=== PATIENT | female | born 1945 | race Caucasian/White ===

== ENCOUNTER 2024-06-21 09:32 | Emergency (ER) | payer MEDICARE, OTHER, SELFPAY ==
[2024-06-21 09:36] VITALS: BP 109/80
[2024-06-21 10:06] LABS: % Basophils 0.3 % (0-2); % Eosinophils 0.4 % (0-6); % Immature Granulocytes 0.5 % (0-0.5); % Monocytes 4.9 % (1.7-9.3); % Neutrophils 76.9 % (42.2-75.2); Absolute Immature Granulocytes 0.1 10^3/uL (0-0.05); Absolute Lymphocytes 1.8 10^3/uL (1.2-3.4); Absolute Monocytes 0.5 10^3/uL (0.1-0.6); Absolute Neutrophils 8.2 10^3/uL (1.4-6.5); Hematocrit 44.8 % (37.0-47.0); Mean Corp Hgb Conc. 33.5 g/dL (33.0-37.0); Mean Corpuscular Volume 86.7 fL (81.0-99.0); Mean Platelet Volume 10.4 fL (7.4-10.4); Nucleated Red Blood Cells % 0 %; Platelet Count 289 10^3/uL (130-400); Red Blood Cell Count 5.17 10^6/uL (4.20-5.40); White Blood Cell Count 10.7 10^3/uL (4.8-10.8)
[2024-06-21 10:26] LABS: ALT (SGPT) 26 U/L (0-35); AST (SGOT) 33 U/L (14-36); Albumin 4.4 g/dl (3.5-5.0); Alkaline Phosphatase 111 U/L (38-126); Blood Urea Nitrogen 11 mg/dl (7-17); Calcium 9.9 mg/dl (8.4-10.2); Carbon Dioxide 24 mmol/L (22-30); Chloride 104 mmol/L (98-107); Glucose 127 mg/dl (70-99); Lipase 133 U/L (23-300); Potassium 3.9 mmol/L (3.5-5.1); Sodium 139 mmol/L (135-145); Total Protein 8.2 g/dl (6.3-8.2); eGFR > 60.00
[2024-06-21 10:32] LABS: Troponin I < 0.012 ng/ml
[2024-06-21 12:00] VITALS: BP 176/62
[2024-06-21] MEDS: ATIVAN 0.5 MG PO (12:40)
[2024-06-21 13:00] VITALS: BP 118/84
--- NOTE | 2024-06-21 13:15 | ED.GENMED ---
History of Present Illness
General
Chief Complaint: Blood Pressure Problem
Source: patient
Exam Limitations: none
Time Seen by Provider: 06/21/24 11:43
Nursing documentation reviewed up to this point in time: agreed with
History of Present Illness
History of Present Illness:
79 Y/O F with h/o htn
on atenolol, diovan, and lasix
here with elevated BP yesterday
she says she felt 'rushed up' like she is anxious about something
she felt that way yusuf soni then checked her BP and it was 170/60 which is high for her
it ended up getting higher 180/80 and she was really nervous
took an extra atenolol last night (she used to be on 50 mg bid but now just usually takes it during the day)
and woke up this morning and still had elevated readings and 'feeling rushed up' and wanted to be checked out
she doesn't feel painful breathing but she feels anxious
no fever/chills, cough, leg swelling
pt takes lasix for edema, not CHF
she has no headache, blurry vision
but she does have a lot of stress
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
and so she is realyl worried
pt became tearful when tlakign about this
Review of Systems
Review of Systems
Allergies reviewed?: Yes
All Other Systems: Not applicable
Phy Exam
Physical Exam
Physical Exam:
GENERAL: Alert , in no apparent distress, anxious
EYE: pupils equal and reactive
NECK: Supple
ENT: o/p clr, mmm.
CARDIAC: Regular rate and rhythm . No edema
LUNGS: Clear breath sounds bilaterally, no acute respiratory distress, no wheezes/rales/rhonchi
ABDOMEN: Soft, without focal tenderness, no r/g, no cvat, normal bowel sounds
NEUROLOGICAL: Alert and oriented, no focal neuro deficits
SKIN: Warm and dry, skin intact.
MUSCULOSKELETAL: No edema, well perfused. neg mckenzie's sign
PSYCH: Mildly anxious
Course
Orders/Labs/Results
Orders:
Orders
06/21/24 09:39
Electrocardiogram (*1) Urgent
Reason for Study: Chest Pain
EKG- Treatment ONCE
06/21/24 09:59
Complete Blood Count/With Diff Urgent
Comprehensive Metabolic Panel Urgent
Lipase Urgent
Troponin I Urgent
06/21/24 12:13
CR Chest - 2 Views Urgent
Comment:
Reason For Exam: chest tightness
06/21/24 12:33
Lorazepam [Ativan] 0.5 mg PO NOW STA
Abnormal Lab Results
06/21/24
09:59
Abs Immat Gran (auto) 0.1 H 10^3/uL
(0-0.05)
Absolute Neuts (auto) 8.2 H 10^3/uL
(1.4-6.5)
Neutrophils % 76.9 H %
(42.2-75.2)
Lymphocytes % 17.0 L %
(20.5-51.1)
Glucose 127 H mg/dl
(70-99)
06/21/24 09:59
06/21/24 09:59
Vital Signs
Initial and Last Documented VS:
Initial Vital Signs
Temp Pulse Resp BP Pulse Ox
36.5 C 58 18 109/80 98
06/21/24 09:36 06/21/24 09:36 06/21/24 09:36 06/21/24 09:36 06/21/24 09:36
Last Documented Vital Signs
Temp Pulse Resp BP Pulse Ox
36.5 C 57 18 176/62 97
06/21/24 09:36 06/21/24 12:00 06/21/24 12:00 06/21/24 12:00 06/21/24 12:00
MDM/Problems Addressed
Differential Diagnosis Includes:
Anxiety, stress, hypertension
MDM/Problems Addressed:
79-year-old female with a history of hypertension presents for feeling 'flushed' which really is describing as feeling anxious and jittery since yesterday afternoon. She has had a lot of stress in the recent sick granddaughter whom she is very
involved in taking care of and patient became very tearful in talking about this. After feeling this way she checked her blood pressure which was elevated more than usual. She normally runs 130/70
took extra dose of atenolol and was able to sleep some, not great and this mornign feels the same way
she has not ever had anxiety attack before
no real chest pain, sob, ysncope, vomiting, leg swellign
she has no ehadache, vision changes, weakness
on exam pt has normal bp in traige
repeated in ED treatment room and it was 170/70 which was similar to home cuff
her exam other than being anxious is unremarkable
after i reassured her about her labs, ekg
pt felt much better and bp 118/82
i still did offer her a dose of ativan orally to helpw ith anxiety
recommend close outpatient f/u
unlikely ACS given no exertional cp and trop neg and ekg normal
*Critical Care Note
Total Time (30-74mins, 75-104mins- exclusive of procedures): Not Applicable
ED Attending Note
-
Portions of this chart may have been created with voice recognition software.� Occasional wrong word or��sound alike� substitutions may have occurred due to the inherent limitations of voice recognition software.
Discharge Plan
Departure
Patient Disposition: Home (Routine Discharge)
Date of Disposition: 06/21/24
Time of Disposition: 13:35
Patient with high blood pressure during this ER visit?: No
Condition: Fair
Covid-19: Not Applicable
Discharge Problem:
Elevated blood pressure reading, Stress
Instructions: High Blood Pressure (DC), Anxiety in adults - ED discharge instructions
Referrals:
Alannah Boateng CRNP [Family Provider] - Follow up in 2-3 days
Activity Restrictions/Additional Instructions:
your blood pressure came down nicely without any treatment. Your blood work was reassuring, EKG was normal and your chest x-ray was clear. This could be situational due to stress. We did give you a small dose of Ativan orally to help with the
stress. But it is important that you follow-up with your family doctor this week. You can take your blood pressure twice a day and just henrik it down and give them a log of your readings. If you feel significantly worse you may return as needed.
Otherwise see your doctor this week
Interventions
Interventions:
*Risk Screen - Suicide Last Done: 06/21/24 09:36
*General Assessment Last Done: 06/21/24 09:36
*ED COVID-19 Vaccine History Last Done: 06/21/24 09:36
Discharge Date and Time
Print Language: IRANIAN
[2024-06-21 15:26] LABS: TSH Reflex To Free T4 1.68 uIU/ml (0.47-4.68)
== END 2024-06-21 14:18 | disposition home or self-care (01) ==
LOC: EMR 09:32
PROVIDERS: EMERGENCY PHYSICIAN Emergency Medicine; FAMILY PHYSICIAN Nurse Practitioner
DX: I10 Essential (primary) hypertension (principal); F43.9 Reaction to severe stress, unspecified; F41.9 Anxiety disorder, unspecified; Z79.899 Other long term (current) drug therapy
CPT/HCPCS: 99285; 71046; 80053; 83690; 84443; 84484; 85025; 93005

== ENCOUNTER 2024-06-23 20:26 | Emergency (ER) | payer MEDICARE, OTHER, SELFPAY ==
[2024-06-23 20:29] VITALS: BP 204/86
[2024-06-23 21:15] LABS: % Basophils 0.4 % (0-2); % Eosinophils 1.3 % (0-6); % Immature Granulocytes 0.4 % (0-0.5); % Lymphocytes 23.5 % (20.5-51.1); % Monocytes 7.9 % (1.7-9.3); % Neutrophils 66.5 % (42.2-75.2); Absolute Basophils 0.1 10^3/uL (0-0.2); Absolute Eosinophils 0.2 10^3/uL (0-0.7); Absolute Immature Granulocytes 0.1 10^3/uL (0-0.05); Absolute Lymphocytes 2.7 10^3/uL (1.2-3.4); Absolute Monocytes 0.9 10^3/uL (0.1-0.6); Absolute Neutrophils 7.7 10^3/uL (1.4-6.5); Hematocrit 42.5 % (37.0-47.0); Hemoglobin 14.4 g/dL (12.0-16.0); Mean Corp Hgb Conc. 33.9 g/dL (33.0-37.0); Mean Corpuscular Hgb 29.6 pg (27.0-31.0); Mean Corpuscular Volume 87.4 fL (81.0-99.0); Mean Platelet Volume 10.5 fL (7.4-10.4); Nucleated Red Blood Cells % 0 %; Platelet Count 299 10^3/uL (130-400); Red Blood Cell Count 4.86 10^6/uL (4.20-5.40); Red Cell Dist. Width 14.3 % (11.5-14.5); White Blood Cell Count 11.6 10^3/uL (4.8-10.8)
[2024-06-23 21:23] VITALS: BMI 31.9
[2024-06-23 21:24] VITALS: BP 156/74
[2024-06-23 21:29] LABS: ALT (SGPT) 24 U/L (0-35); AST (SGOT) 32 U/L (14-36); Albumin 4.7 g/dl (3.5-5.0); Alkaline Phosphatase 97 U/L (38-126); Blood Urea Nitrogen 17 mg/dl (7-17); Calcium 10.3 mg/dl (8.4-10.2); Carbon Dioxide 23 mmol/L (22-30); Chloride 103 mmol/L (98-107); Estimated Creatinine Clearance 64 ml/min; Glucose 114 mg/dl (70-99); Potassium 4.2 mmol/L (3.5-5.1); Sodium 138 mmol/L (135-145); Total Bilirubin 0.9 mg/dl (0.2-1.3); eGFR > 60.00
[2024-06-23 21:40] LABS: Troponin I < 0.012 ng/ml
[2024-06-23 21:59] LABS: TSH Reflex To Free T4 2.72 uIU/ml (0.47-4.68)
--- NOTE | 2024-06-23 22:18 | ED.GENMED ---
History of Present Illness
General
Chief Complaint: Blood Pressure Problem
Source: patient
Exam Limitations: none
Time Seen by Provider: 06/23/24 21:47
Nursing documentation reviewed up to this point in time: agreed with
History of Present Illness
History of Present Illness:
Patient is a 79-year-old female with history hypertension presenting to the emergency department due to high blood pressure readings at home. Tonight�patient states she started to feel a flushing sensation and mildly anxious. She then took her
blood pressure which was found to be in the 170s/80s. Patient states that she contacted her PCP after blood pressure did not resolve on its own and was recommended to come to the emergency department.
Patient denied any associated chest pain, shortness of breath, back pain, headache, visual changes, numbness/tingling or weakness in extremities. Patient denies any fever, chills, cough, urinary complaints, or abdominal pain.
Patient seen in emergency department 2 days ago for similar complaint and follow-up with primary care yesterday. She was started on propranolol as needed for anxiety as they think this may be playing a role in her hypertension.
Review of Systems
Review of Systems
Allergies reviewed?: Yes
All Other Systems: ROS reviewed and negative except as documented in HPI and ROS
Phy Exam
Physical Exam
Physical Exam:
Vitals: Hypertensive, otherwise vital signs stable. Afebrile
General: Patient is well appearing, no acute distress. Nontoxic appearing
Skin: Warm and dry, no rashes or lesions
Head: Normocephalic, atraumatic
Eyes: Sclera nonicteric. EOMs intact. No nystagmus.
Throat: Protecting airway
Neck: Normal ROM, no cervical spine tenderness, no meningismus. No JVD
Cardiac: Regular rate and rhythm, no murmurs. 2+ radial pulse palpable bilaterally
Pulm: Normal respiratory effort, no wheezes, rales, rhonchi heard on exam.
Abdomen: No abdominal tenderness.
Extremities: No evidence of cyanosis or edema. Palpable distal pulses
Neuro: AAOx3. CN II-XII intact. No focal neurologic deficits. Normal finger-nose. Fluid speech. Steady gait
Psychiatric: Normal affect.
Course
Orders/Labs/Results
Orders:
Orders
06/23/24 20:29
EKG [Electrocardiogram (*1)] Urgent
Reason for Study: Hypertension, Benign
EKG- Treatment ONCE
06/23/24 21:04
Complete Blood Count/With Diff Urgent
Comprehensive Metabolic Panel Urgent
TSH Reflex To Free T4 Urgent
Troponin I Urgent
06/23/24 22:12
Orthostatic VS- Treatment ONCE
06/23/24 22:16
COVID-19 Antigen Urgent
Source: Nasal Swab
Influenza A+B Rapid Molecular Urgent
THOMAS Source: Nasal Swab
Specimen Description:
Abnormal Lab Results
06/23/24
21:04
WBC 11.6 H 10^3/uL
(4.8-10.8)
MPV 10.5 H fL
(7.4-10.4)
Abs Immat Gran (auto) 0.1 H 10^3/uL
(0-0.05)
Absolute Neuts (auto) 7.7 H 10^3/uL
(1.4-6.5)
Absolute Monos (auto) 0.9 H 10^3/uL
(0.1-0.6)
Glucose 114 H mg/dl
(70-99)
Calcium 10.3 H mg/dl
(8.4-10.2)
06/23/24 21:04
06/23/24 21:04
Vital Signs
Initial and Last Documented VS:
Initial Vital Signs
Temp Pulse Resp BP Pulse Ox
98.0 F 60 17 204/86 98
06/23/24 20:29 06/23/24 20:29 06/23/24 20:29 06/23/24 20:29 06/23/24 20:29
Last Documented Vital Signs
Temp Pulse Resp BP Pulse Ox
98.0 F 90 18 165/90 99
06/23/24 20:29 06/23/24 23:06 06/23/24 23:06 06/23/24 23:06 06/23/24 23:06
MDM/Problems Addressed
Differential Diagnosis Includes:
Not limited to: Asymptomatic hypertension, hypertensive urgency, hypothyroidism, anxiety, labile hypertension, etc.
MDM/Problems Addressed:
79-year-old female with history hypertension presents with high blood pressure readings at home. Reports feeling anxious prior to taking her blood pressure. No associated chest pain, shortness of breath, severe headache, tearing back pain,
numbness/tingling or weakness. On arrival patient hypertensive although much decreased by my assessment without intervention. Otherwise she is stable vital signs. Physical exam as above. Patient well-appearing and parents distress. Appears
mildly anxious. Cardio/pulmonary assessment unremarkable. Patient has no focal neurologic deficits on exam. Basic labs obtained in triage. Mild leukocytosis noted. No evidence of associated infection. Chemistry unremarkable. Troponin
undetectable. EKG shows normal sinus rhythm without acute ischemic changes.
Ultimately�suspect asymptomatic hypertension. No evidence of endorgan damage to suggest hypertensive emergency. No indication for emergent lowering of blood pressure at this time. I do feel anxiety may be contributing. She recently started
medication for anxiety yesterday. Workup in emergency department negative. Patient feels well and asymptomatic. While patient remains hypertensive�BP has decreased without intervention. Feel patient is stable for discharge home with close
primary care follow-up. Recommended continuing medications as prescribed for now, if BP persistently elevated with systolics over 170s recommended taking additional Diovan. Advised to keep blood pressure log and follow-up with primary care she may
need adjustments in BP medications. Close return precautions discussed. Case discussed with attending physician
Chronic conditions affecting care:
Hypertension
Acute Exacerbation and/or Progression of Chronic Illness:
Acutely hypertensive
*Pulse Oximetry
Patient hypoxic: no
*EKG
Interpreted by ED Provider?: Yes
EKG Intrepretation Date: 06/23/24
Interpretation: normal
Comparison EKG: no changes
Heart Rate: 57
Rate: bradycardiac
Rhythm: sinus
[place]: normal axis
Interval: normal interval
QRS Pattern: normal QRS
Ischemia: no ischemia
*Technician Biological Health Interpretation
Rate: Technician Biological Health- N/A
*Critical Care Note
Total Time (30-74mins, 75-104mins- exclusive of procedures): Not Applicable
Patient Management
Escalation/DeEscalation of care consider admission/obs:
Admit not indicated
ED Attending Note
-
Portions of this chart may have been created with voice recognition software.� Occasional wrong word or��sound alike� substitutions may have occurred due to the inherent limitations of voice recognition software.
Discharge Plan
Departure
Patient Disposition: Home (Routine Discharge)
Date of Disposition: 06/23/24
Time of Disposition: 23:02
Patient with high blood pressure during this ER visit?: Yes
Condition: Good
Covid-19: Negative COVID-19
Discharge Problem:
Hypertension
Instructions: High Blood Pressure (DC), BLOOD PRESSURE
Referrals:
Alannah Boateng CRNP [Family Provider] - Follow up in 2-3 days
Activity Restrictions/Additional Instructions:
RETURN TO THE EMERGENCY DEPARTMENT WITH CHEST PAIN, SHORTNESS OF BREATH, SEVERE HEADACHE, NUMBNESS/TINGLING IN EXTREMITIES, WEAKNESS, OR ANY OTHER CONCERNS
-As discussed�your lab work showed no acute abnormalities. Your thyroid level was normal today.
-Continue to take your blood pressure medication as prescribed. If you are consistently having readings over 170s/90s�you can take double of your Diovan.
-Is important stay well-hydrated. Eat a low-salt diet.
-You should follow-up with your family doctor for further evaluation/management as you may work adjustments to your blood pressure medications.
Monitor your symptoms closely and return to the emergency department with any acute worsening/new symptoms or any other concerns
Interventions
Interventions:
*Risk Screen - Suicide Last Done: 06/23/24 20:31
*General Assessment Last Done: 06/23/24 20:31
*Neglect/Abuse Screening Last Done: 06/23/24 20:31
*ED- Fall Risk Assessment Last Done: 06/23/24 21:24
*ED COVID-19 Vaccine History Last Done: 06/23/24 20:31
*Nursing Disposition Last Done: 06/23/24 23:06
ED- Cardiac Assessment Last Done: 06/23/24 21:26
ED- Neurological Assessment Last Done: 06/23/24 21:26
ED- Pulmonary Assessment Last Done: 06/23/24 21:26
Discharge Date and Time
Discharge Date/Time: 06/23/24 23:08
Print Language: MALTESE
[2024-06-23 22:20] VITALS: BP 146/81; BP 157/57; BP 157/59; PULSE 57; PULSE 59; PULSE 67
[2024-06-23 22:43] LABS: COVID-19 Antigen Negative (Negative)
[2024-06-23 23:06] VITALS: BP 165/90
== END 2024-06-23 23:08 | disposition home or self-care (01) ==
LOC: EMR 20:26
PROVIDERS: Physician Assistant; EMERGENCY PHYSICIAN Emergency Medicine; FAMILY PHYSICIAN Nurse Practitioner
DX: I10 Essential (primary) hypertension (principal); Z11.52 Encounter for screening for COVID-19; R23.2 Flushing; F41.9 Anxiety disorder, unspecified; Z79.899 Other long term (current) drug therapy
CPT/HCPCS: 99284; 80053; 84443; 84484; 85025; 87502; 87811; 93005